=== PATIENT | male | born 1950 | race Caucasian/White ===

== ENCOUNTER 2017-06-09 17:21 | Emergency (ER) | payer MEDICARE, BC ==
[2017-06-09 17:41] VITALS: BP 141/99
--- NOTE | 2017-06-09 19:04 | ED ---
Throat Pain/Nasal Congestion - HPI Summary HPI Summary: 67 yo WM h/o DM c/o sore throat that progressed to left ear pain x 6 days associated with f/c - History of Current Complaint Chief Complaint: UCRespiratory Time Seen by Provider: 06/09/17 17:35 Hx Obtained From: Patient Onset/Duration: Lasting Days Severity: Moderate Associated Signs And Symptoms: Positive: Negative - Allergies/Home Medications Allergies/Adverse Reactions: Allergies Allergy/AdvReac Type Severity Reaction Status Date / Time No Known Allergies Allergy Verified 06/09/17 17:42 Home Medications: Home Medications Aspirin EC TAB* [Ecotrin EC Low Dose 81 MG*] 1 tab PO DAILY 06/09/17 [History Confirmed 06/09/17] Betamethasone Dipropionate 1 dose TOPICAL DAILY 06/09/17 [History Confirmed 05/24] Cholecalciferol TAB* [Vitamin D TAB*] 1 tab PO DAILY 06/09/17 [History Confirmed 06/09/17] Fluticasone NASAL SPRAY 50MCG* [Flonase NASAL SPRAY 50MCG*] 2 spray NASAL DAILY 06/09/17 [History Confirmed 06/09/17] Glimepiride 1 tab PO DAILY 06/09/17 [History Confirmed 06/09/17] Insulin Glargine,Hum.rec.anlog [Lantus Solostar 5x3 ML PENS] 0.56 unit SQ DAILY 06/09/17 [History Confirmed 06/09/17] Losartan Potassium 1 tab PO DAILY 06/09/17 [History Confirmed 06/09/17] Simvastatin [Zocor] 1 tab PO DAILY 06/09/17 [History Confirmed 06/09/17] metFORMIN* [Glucophage 1000 MG TAB *] 1 tab PO BID 06/09/17 [History Confirmed 06/09/17] PMH/Surg Hx/FS Hx/Imm Hx Previously Healthy: Yes Endocrine/Hematology History: Reports: Hx Diabetes - II Cardiovascular History: Reports: Hx Hypertension - Surgical History Surgery Procedure, Year, and Place: 2005 GI. Appy and spleen Infectious Disease History: No Infectious Disease History: Denies: Traveled Outside the [place] in Last 30 Days - Social History Alcohol Use: None Substance Use Type: Reports: None Smoking Status (MU): Never Smoked Tobacco Review of Systems Positive: Fever, Chills, Fatigue Eyes: Negative Positive: Sore Throat, Ear Ache Cardiovascular: Negative Respiratory: Negative Gastrointestinal: Negative Musculoskeletal: Negative Skin: Negative Neurological: Negative Psychological: Normal All Other Systems Reviewed And Are Negative: Yes Physical Exam Triage Information Reviewed: Yes Vital Signs On Initial Exam: Initial Vitals Temp Pulse Resp BP Pulse Ox 37.2 C 100 12 141/99 98 06/09/17 17:39 06/09/17 17:39 06/09/17 17:39 06/09/17 17:39 06/09/17 17:39 Vital Signs Reviewed: Yes Appearance: Positive: Ill-Appearing Skin: Positive: Warm Head/Face: Positive: Normal Head/Face Inspection Eyes: Positive: Normal ENT: Positive: TM red - left>right Neck: Positive: Tenderness @ - B/L post auricular LNs, L>R Respiratory/Lung Sounds: Positive: Clear to Auscultation Cardiovascular: Positive: Normal, S1, S2 Abdomen Description: Positive: Nontender Musculoskeletal: Positive: Normal Neurological: Positive: Normal Psychiatric: Positive: Normal Diagnostics - Vital Signs Vital Signs Temp Pulse Resp BP Pulse Ox 06/09/17 17:39 37.2 C 100 12 141/99 98 - Laboratory Lab Results: Lab Results 06/09/17 Range/Units 17:58 Group A Strep Rapid Negative (Negative) Lab Statement: Any lab studies that have been ordered have been reviewed, and results considered in the medical decision making process. EENT Course/Dx - Course Course Of Treatment: rapid strep neg - Diagnoses Provider Diagnoses: Otitis media of left ear Discharge - Sign-Out/Discharge Documenting (check all that apply): Discharge/Admit/Transfer - Discharge Plan Condition: Stable Disposition: HOME Prescriptions: Amoxicillin/Clavulanate TAB* [Augmentin TAB 875*] 875 mg PO BID 7 Days #14 tab Patient Education Materials: Ear Infection (ED) Referrals: No Primary Care Phys,NOPCP [Primary Care Provider] - - Billing Disposition and Condition Condition: STABLE Disposition: HOME
== END 2017-06-09 19:23 | disposition home or self-care (01) ==
LOC: UCEAST 17:21
DX: H66.92 Otitis media, unspecified, left ear (principal); E11.9 Type 2 diabetes mellitus without complications; Z79.4 Long term (current) use of insulin; Z79.84 Long term (current) use of oral hypoglycemic drugs; I10 Essential (primary) hypertension
CPT/HCPCS: 87651; 99202; G0463

== ENCOUNTER 2017-06-16 20:26 | Emergency (ER) | payer MEDICARE, BC ==
[2017-06-16 21:06] VITALS: BP 125/87
[2017-06-16] MEDS ORDERED: Nystatin SUSPENSION* 100000 UNITS/ML 5 ML UDC ONE ×2 (21:27→21:34)
--- NOTE | 2017-06-16 21:34 | ED ---
Throat Pain/Nasal Congestion - HPI Summary HPI Summary: 67 yo WM h/o DM was here 1 week ago for and was given Amox for OM, felt better but still feels "blocked in B/L ear , left>right", denies pain/f/c/or discharge - History of Current Complaint Chief Complaint: UCEar Time Seen by Provider: 06/16/17 20:39 Hx Obtained From: Patient Onset/Duration: Gradual Onset, Lasting Days Severity: Moderate Associated Signs And Symptoms: Positive: Negative - Epiglottits Risk Factors Epiglottis Risk Factors: Negative - Allergies/Home Medications Allergies/Adverse Reactions: Allergies Allergy/AdvReac Type Severity Reaction Status Date / Time No Known Allergies Allergy Verified 06/09/17 17:42 PMH/Surg Hx/FS Hx/Imm Hx Previously Healthy: Yes Endocrine/Hematology History: Reports: Hx Diabetes - II Cardiovascular History: Reports: Hx Hypertension - Surgical History Surgery Procedure, Year, and Place: 2005 GI. Appy and spleen Infectious Disease History: No Infectious Disease History: Denies: Traveled Outside the [place] in Last 30 Days - Social History Alcohol Use: None Substance Use Type: Reports: None Smoking Status (MU): Never Smoked Tobacco Review of Systems Constitutional: Negative Eyes: Negative ENT: Other Positive: Other - "ear blocked" Cardiovascular: Negative Respiratory: Negative Gastrointestinal: Negative Genitourinary: Negative Musculoskeletal: Negative Skin: Negative Neurological: Negative Psychological: Normal All Other Systems Reviewed And Are Negative: Yes Physical Exam Triage Information Reviewed: Yes Vital Signs On Initial Exam: Initial Vitals Temp Pulse Resp BP Pulse Ox 37.2 C 93 18 125/87 99 06/16/17 21:01 06/16/17 21:01 06/16/17 21:01 06/16/17 21:01 06/16/17 21:01 Vital Signs Reviewed: Yes Appearance: Positive: Well-Appearing Skin: Positive: Warm Eyes: Positive: Normal ENT: Positive: Other - B/L whitish fungal hyphae seen in B/L inner ear canal left>right, no effusion Neck: Positive: Supple Respiratory/Lung Sounds: Positive: Clear to Auscultation Cardiovascular: Positive: Normal Musculoskeletal: Positive: Normal Neurological: Positive: Normal Diagnostics - Vital Signs Vital Signs Temp Pulse Resp BP Pulse Ox 06/16/17 21:01 37.2 C 93 18 125/87 99 - Laboratory Lab Statement: Any lab studies that have been ordered have been reviewed, and results considered in the medical decision making process. EENT Course/Dx - Course Course Of Treatment: Otomycosis- Nystatin suspension to B/L ears [id number] - Diagnoses Provider Diagnoses: Otomycosis of left ear, Otomycosis Discharge - Sign-Out/Discharge Documenting (check all that apply): Discharge/Admit/Transfer - Discharge Plan Condition: Stable Disposition: HOME Prescriptions: Nystatin SUSPENSION* 100,000 unit BOTH EARS BID 15 Days #14 [facility] [place] Patient Education Materials: Otitis Externa (ED) Referrals: No Primary Care Phys,NOPCP [Primary Care Provider] - Additional Instructions: follow up with PCP in 1 week - Billing Disposition and Condition Condition: STABLE Disposition: HOME
== END 2017-06-16 21:48 | disposition home or self-care (01) ==
LOC: UCEAST 20:26
DX: B36.9 Superficial mycosis, unspecified (principal); H62.43 Otitis externa in other diseases classified elsewhere, bilateral
CPT/HCPCS: 99212; A9270-GY; G0463

== ENCOUNTER 2018-05-09 21:19 | Emergency (ER) | payer MEDICARE, BC ==
[2018-05-09] MEDS ORDERED: Morphine 4 MG/ML VIAL (1 ml) 4 MG/ML VIAL IV ONE (21:45)
[2018-05-09] MEDS ORDERED: NS 0.9% 1000 ML** 1,000 ML IV ONE (21:45)
[2018-05-09] MEDS ORDERED: Ondansetron INJ* 2 MG/ML VIAL IV ONE (21:46)
--- NOTE | 2018-05-09 21:46 | ED ---
Abdominal Pain/Male - HPI Summary HPI Summary: This patient is a 68 year old M presenting to ED with a chief complaint of LLQ abdominal pain since around 2100. The patient rates the pain 3/10 in severity. Symptoms aggravated by nothing. Symptoms alleviated by nothing. Patient reports vomiting after PO (1 hour ago). Last BM was last night. PMHx of intestinal blockages (1998, 2002, and 2004) and had SHx of appendectomy and splenectomy in 2005. Denies hx of diverticulitis. - History of Current Complaint Chief Complaint: EDAbdPain Stated Complaint: VOMITING, "THINK I HAVE A STOMACH BLOCKAGE" PER PT Time Seen by Provider: 05/09/18 21:37 Hx Obtained From: Patient Onset/Duration: Sudden Onset, Lasting Minutes - around 2100, Still Present Timing: Constant, Lasting Minutes Severity Initially: Mild Severity Currently: Mild - 3/10 Pain Intensity: 3 Pain Scale Used: 0-10 Numeric Location: Discrete At: LLQ Radiates: No Aggravating Factor(s): Nothing Alleviating Factor(s): Nothing Associated Signs And Symptoms: Positive: Vomiting - Allergies/Home Medications Allergies/Adverse Reactions: Allergies Allergy/AdvReac Type Severity Reaction Status Date / Time No Known Allergies Allergy Verified 05/09/18 21:57 PMH/Surg Hx/FS Hx/Imm Hx Endocrine/Hematology History: Reports: Hx Diabetes - II Cardiovascular History: Reports: Hx Hypertension - Surgical History Surgery Procedure, Year, and Place: 2005 GI. Appy and spleen Infectious Disease History: Yes Infectious Disease History: Denies: Traveled Outside the [place] in Last 30 Days - Family History Known Family History: Positive: Diabetes, Other Family History: HLD - Social History Alcohol Use: None Substance Use Type: Reports: None Smoking Status (MU): Never Smoked Tobacco Review of Systems Negative: Fever Positive: Abdominal Pain - LLQ, Vomiting, Other - last BM was last night All Other Systems Reviewed And Are Negative: Yes Physical Exam - Summary Physical Exam Summary: VITAL SIGNS: Reviewed. GENERAL: Patient is a well-developed and nourished MALE who is lying comfortable in the stretcher. Patient is not in any acute respiratory distress. HEAD AND FACE: No signs of trauma. No ecchymosis, hematomas or skull depressions. No sinus tenderness. EYES: PERRLA, EOMI x 2, No injected conjunctiva, no nystagmus. EARS: Hearing grossly intact. Ear canals and tympanic membranes are within normal limits. MOUTH: Oropharynx within normal limits. NECK: Supple, trachea is midline, no adenopathy, no JVD, no carotid bruit, no c- spine tenderness, neck with full ROM. CHEST: Symmetric, no tenderness at palpation LUNGS: Clear to auscultation bilaterally. No wheezing or crackles. CVS: Regular rate and rhythm, S1 and S2 present, no murmurs or gallops appreciated. ABDOMEN: Soft, LLQ tenderness. Mild to moderate distension. No rebound no guarding, and no masses palpated. Bowel sounds are normal. EXTREMITIES: FROM in all major joints, no edema, no cyanosis or clubbing. NEURO: Alert and oriented x 3. No acute neurological deficits. Speech is normal and follows commands. SKIN: Dry and warm Triage Information Reviewed: Yes Vital Signs On Initial Exam: Initial Vitals Temp Pulse Resp BP Pulse Ox 97.3 F 111 20 140/96 96 05/09/18 21:21 05/09/18 21:21 05/09/18 21:21 05/09/18 21:21 05/09/18 21:21 Vital Signs Reviewed: Yes Diagnostics - Vital Signs Vital Signs Temp Pulse Resp BP Pulse Ox 05/09/18 21:21 97.3 F 111 20 140/96 96 - Laboratory Result Diagrams: 05/09/18 22:15 05/09/18 22:15 Lab Statement: Any lab studies that have been ordered have been reviewed, and results considered in the medical decision making process. - CT CT abd/pel CT Interpretation Completed By: Radiologist Summary of CT Findings: 1. No CT findings to correlate with patient's symptomatology. 2. Right nephrolithiasis. 3. Right inguinal hernia. No strangulation. Dr. Damon has reviewed this radiology report. Re-Evaluation - Re-Evaluation First Eval Re-Evaluation Time: 00:23 Change: Improved Comment: The patient feels better. Discussed results and plan for discharge. Patient understands and agrees with this plan. Abdominal Pain Male Course/Dx - Course Assessment/Plan: This patient is a 68 year old M presenting to ED with a chief complaint of LLQ abdominal pain since around 2100. In the ED course, the patient was given fluids, Morphine, and Zofran. CT abd/pel reveals 1. No CT findings to correlate with patient's symptomatology. 2. Right nephrolithiasis. 3. Right inguinal hernia. No strangulation. The patient feels better in the ED. This patient will be discharged with dx of abdominal pain. Patient understands and agrees with this plan. - Diagnoses Differential Diagnosis/HQI/PQRI: Other - abdominal pain Provider Diagnoses: Abdominal pain Discharge - Sign-Out/Discharge Documenting (check all that apply): Patient Departure - discharge Patient Received Moderate/Deep Sedation with Procedure: No - Discharge Plan Condition: Stable Disposition: HOME Patient Education Materials: Abdominal Pain (ED) Referrals: [facility] [Outside] - 3 Days Additional Instructions: PLEASE RETURN TO THE ED TO IMMEDIATELY FOR WORSENING OR CONCERNING SYMPTOMS. - Attestation Statements Document Initiated by Scribe: Yes Documenting Scribe: Star Ansari Provider For Whom Scribe is Documenting (Include Credential): Lilliam Damon MD Scribe Attestation: Star Howe, scribed for Lilliam Damon MD on 05/10/18 at 0023. Status of Scribe Document: Ready
[2018-05-09] MEDS ORDERED: Ondansetron INJ* 2 MG/ML VIAL ONE (21:51)
[2018-05-09 22:36] LABS: Hematocrit 47 % (36-46); Hemoglobin 15.3 g/dL (14.0-18.0); Mean Corpuscular HGB Conc 33 g/dL (31-36); Mean Corpuscular Hemoglobin 31 pg (27-31); Mean Corpuscular Volume 93 fL (80-94); Red Blood Count 4.99 10^6 /uL (4.18-5.48); Red Cell Distribution Width 13 % (10.5-15); White Blood Count 13.8 10^3/uL (3.5-10.8)
[2018-05-09 22:37] LABS: INR 0.91 (0.77-1.02)
[2018-05-09 22:46] LABS: Albumin 4.2 g/dL (3.2-5.2); Albumin/Globulin Ratio 1.4 (1-3); BUN/Creatinine Ratio 26.8 (8-20); C Reactive Protein 7.17 mg/L (<8.01); Calcium 9.3 mg/dL (8.6-10.3); EGFR African American 134.3 (>60); Potassium 4.1 mmol/L (3.5-5.0); Total Bilirubin 0.5 mg/dL (0.2-1.0); Total Protein 7.2 g/dL (6.4-8.9)
[2018-05-09] MEDS ORDERED: Iodixanol* (CONTRAST) 320 MG/ML 100 ML SDV IV ONE (22:50)
[2018-05-09 22:53] LABS: ABS Basophils 0 10^3/ul (0-0.2); ABS Eosinophils 0.1 10^3/ul (0-0.6); ABS Lymphocytes 0.7 10^3/ul (1.0-4.8); ABS Monocytes 0.7 10^3/ul (0-0.8); ABS Neutrophils 12.3 10^3/ul (1.5-7.7); ABS Nucleated RBC 0 10^3/ul; Eosinophil % 0.7 %; Lymphocyte % 5.1 %; Mean Platelet Volume 9.9 fL (7.4-10.4); Nucleated Red Blood Cells % 0.1; Platelet Count 248 10^3/uL (150-450)
[2018-05-09 23:38] LABS: Urine Appearance Clear; Urine Bacteria Absent (Absent); Urine Bilirubin Negative (Negative); Urine Blood 1+ (Negative); Urine Color Straw; Urine Glucose 1+(50 mg/dL) (Negative); Urine Ketones Negative (Negative); Urine Nitrite Negative (Negative); Urine Protein Negative (Negative); Urine Red Blood Cell 1+(3-5/hpf) (Absent); Urine Specific Gravity 1.036 (1.010-1.030); Urine Urobilinogen Negative (Negative); Urine White Blood Cell Trace(0-5/hpf) (Absent)
[2018-05-10 00:56] VITALS: BP 114/84
== END 2018-05-10 00:58 | disposition home or self-care (01) ==
LOC: ED 21:19
DX: R10.32 Left lower quadrant pain (principal); R11.10 Vomiting, unspecified; N20.0 Calculus of kidney; K40.90 Unilateral inguinal hernia, without obstruction or gangrene, not specified as recurrent; E11.9 Type 2 diabetes mellitus without complications; I10 Essential (primary) hypertension; Z90.89 Acquired absence of other organs; Z90.81 Acquired absence of spleen
CPT/HCPCS: 36415; 74177; 80053; 81003; 81015; 82150; 83690; 85025; 85610; 85730; 86140; 87086; 96361; 96374; 96375; 99283; J2270; J2405; Q9967

== ENCOUNTER 2018-06-29 17:40 | Emergency (ER) | payer MEDICARE, BC ==
[2018-06-29] MEDS ORDERED: NS 0.9% 1000 ML** 3,000 ML IV ONE (19:54)
[2018-06-29] MEDS ORDERED: Ondansetron INJ* 2 MG/ML VIAL IV ONE (19:54)
[2018-06-29] MEDS ORDERED: Morphine 4 MG/ML VIAL (1 ml) 4 MG/ML VIAL IV ONE (19:54)
--- NOTE | 2018-06-29 20:06 | ED ---
Abdominal Pain/Male - HPI Summary HPI Summary: Pt is a 68 y/o M presenting to the ED with a chief complaint of abd pain rated at a 9/10 first onset about 1500, 3 hours after he ate lunch. He also reports associated N/V since 1500. He notes hx of three blockages in his intestines as well as adhesions that were repaired in 2005. He had a flare up of abd pain about 2 months ago, but a CT scan did not show a blockage, and he believes this is what is causing his pain. He denies any fevers. - History of Current Complaint Chief Complaint: EDAbdPain Stated Complaint: ABD PAIN, VOMITING PER PT Time Seen by Provider: 06/29/18 19:44 Hx Obtained From: Patient Onset/Duration: Sudden Onset, Lasting Hours, Still Present Timing: Constant, Lasting Hours Severity Initially: Moderate Severity Currently: Severe Pain Intensity: 9 Pain Scale Used: 0-10 Numeric Location: Diffuse Radiates: No Aggravating Factor(s): Nothing Alleviating Factor(s): Nothing Associated Signs And Symptoms: Positive: Nausea, Vomiting. Negative: Fever - Allergies/Home Medications Allergies/Adverse Reactions: Allergies Allergy/AdvReac Type Severity Reaction Status Date / Time No Known Allergies Allergy Verified 06/29/18 19:59 PMH/Surg Hx/FS Hx/Imm Hx Previously Healthy: No Endocrine/Hematology History: Reports: Hx Diabetes - II Cardiovascular History: Reports: Hx Hypertension GI History: Reports: Other GI Disorders - prior blockages with adhesions in his intestines - Surgical History Surgery Procedure, Year, and Place: 2005 GI. Appy and spleen Infectious Disease History: No Infectious Disease History: Denies: Traveled Outside the [place] in Last 30 Days - Family History Known Family History: Positive: Diabetes, Other Family History: HLD - Social History Alcohol Use: None Hx Substance Use: No Substance Use Type: Reports: None Hx Tobacco Use: No Smoking Status (MU): Never Smoked Tobacco Review of Systems Negative: Fever Positive: Abdominal Pain, Vomiting, Nausea All Other Systems Reviewed And Are Negative: Yes Physical Exam - Summary Physical Exam Summary: Appearance: Well-appearing, Well-nourished, lying in bed comfortably Skin: Warm, dry, no obvious rash Eyes: sclera anicteric, no conjunctival pallor ENT: mucous membranes moist, pharynx appears normal Neck: Supple, nontender Respiratory: Clear to auscultation, no signs of respiratory distress Cardiovascular: Normal S1, S2. No murmurs. Normal distal pulses in tibial and radial bilaterally. Abdomen: Soft, generalized abdominal tenderness, increased bowel sounds Musculoskeletal: Normal, Strength/ROM Intact Neurological: A&Ox3, awake and alert, mentation is normal, speech is fluent and appropriate Psychiatric: affect is normal, does not appear anxious or depressed Triage Information Reviewed: Yes Vital Signs On Initial Exam: Initial Vitals Temp Pulse Resp BP Pulse Ox 97.0 F 74 18 159/86 96 06/29/18 17:42 06/29/18 17:42 06/29/18 17:42 06/29/18 17:42 06/29/18 17:42 Vital Signs Reviewed: Yes Diagnostics - Vital Signs Vital Signs Temp Pulse Resp BP Pulse Ox 06/29/18 17:42 97.0 F 74 18 159/86 96 - Laboratory Result Diagrams: 06/29/18 20:14 06/29/18 20:14 Lab Statement: Any lab studies that have been ordered have been reviewed, and results considered in the medical decision making process. - CT CT abd/pelv CT Interpretation Completed By: Radiologist Summary of CT Findings: 1. The previously seen right renal calculus is now positioned in the proximal right ureter measuring 9 mm in maximum dimension and contributing to mild to moderate right obstructive uropathy. 2. Stable colonic diverticulosis without evidence for acute diverticulitis. ED physician has reviewed this report. Abdominal Pain Male Course/Dx - Course Course Of Treatment: Pt is a 68 y/o M presenting to the ED with a chief complaint of abd pain rated at a 9/10 first onset about 1500, 3 hours after he ate lunch. He also reports associated N/V since 1500. He denies any fevers, and notes a hx of blockages in his intestines as well as adhesions that have been surgically repaired. On exam, the pt has diffuse abd tenderness with increased bowel sounds. In the ED course, the pt was given 4mg Morphine for his pain as well as Zofran for his nausea/vomiting. CT abd/pelv shows: 1. The previously seen right renal calculus is now positioned in the proximal right ureter measuring 9 mm in maximum dimension and contributing to mild to moderate right obstructive uropathy. 2. Stable colonic diverticulosis without evidence for acute diverticulitis. He will be given a Percocet to manage the pain in the ED , and will be discharged with a dx of kidney stones and instructed to follow up with Dr. Solo in the next coming days. He is stable and agreeable with this plan. - Diagnoses Provider Diagnoses: Kidney stone Discharge - Sign-Out/Discharge Documenting (check all that apply): Patient Departure Patient Received Moderate/Deep Sedation with Procedure: No - Discharge Plan Condition: Stable Disposition: HOME Prescriptions: Ondansetron ODT TAB* [Zofran 4 MG Odt TAB*] 8 mg PO Q6H PRN #20 tab.odt PRN Reason: Nausea oxyCODONE/Acetamin 5/325 MG* [Percocet 5/325 TAB*] 2 tab PO Q4H PRN #24 tab MDD 8 PRN Reason: Pain Patient Education Materials: Kidney Stones (ED) Referrals: Brown Nguyễn MD [Primary Care Provider] - Additional Instructions: The pain you are experiencing is coming from a kidney stone lodged in the right ureter. Hopefully the stone will pass, but it is large enough that it may not. Over the weekend take pain medication and try to keep your symptoms under control. If you have difficulty doing that you can come back here, and we will take care of their her symptoms, but if you need surgical intervention over the weekend we would have to transfer you to a tertiary care center. - Billing Disposition and Condition Condition: STABLE Disposition: Home - Attestation Statements Document Initiated by Perlita: Yes Documenting Scribe: Sharmila Mane Provider For Whom Perlita is Documenting (Include Credential): Johnny Becker MD. Scribe Attestation: Sharmila Howe, tomed for Johnny Becker MD. on 07/03/18 at 2028. Scribe Documentation Reviewed: Yes Provider Attestation: The documentation as recorded by the Sharmila rouse accurately reflects the service I personally performed and the decisions made by me, Johnny Becker MD. Status of Scribe Document: Viewed
[2018-06-29 20:24] LABS: ABS Basophils 0.1 10^3/ul (0-0.2); ABS Monocytes 0.5 10^3/ul (0-0.8); ABS Neutrophils 11.5 10^3/ul (1.5-7.7); Hematocrit 46 % (42-52); Hemoglobin 15.3 g/dL (14.0-18.0); Lymphocyte % 7.9 %; Mean Corpuscular HGB Conc 33 g/dL (31-36); Mean Corpuscular Hemoglobin 31 pg (27-31); Mean Corpuscular Volume 93 fL (80-94); Platelet Count 278 10^3/uL (150-450); Red Blood Count 4.98 10^6 /uL (4.18-5.48); Red Cell Distribution Width 13 % (10.5-15); White Blood Count 13.1 10^3/uL (3.5-10.8)
[2018-06-29 20:42] LABS: Albumin 4.6 g/dL (3.2-5.2); Albumin/Globulin Ratio 1.4 (1-3); BUN/Creatinine Ratio 21.9 (8-20); C Reactive Protein 6.64 mg/L (<8.01); Calcium 10.1 mg/dL (8.6-10.3); EGFR African American 94.8 (>60); EGFR Non-African American 78.4 (>60); Globulin 3.2 g/dL (2-4); Potassium 4.3 mmol/L (3.5-5.0); Total Bilirubin 0.5 mg/dL (0.2-1.0); Total Protein 7.8 g/dL (6.4-8.9)
[2018-06-29 20:45] LABS: Urine Appearance Cloudy; Urine Bilirubin Negative (Negative); Urine Blood Negative (Negative); Urine Color Yellow; Urine Glucose 3+(>=500 mg/dL) (Negative); Urine Ketones Trace (Negative); Urine Nitrite Negative (Negative); Urine Protein Negative (Negative); Urine Specific Gravity 1.021 (1.010-1.030); Urine Urobilinogen Negative (Negative)
[2018-06-29] MEDS ORDERED: Iodixanol* (CONTRAST) 320 MG/ML 100 ML SDV IV ONE (20:59)
[2018-06-29] MEDS ORDERED: oxyCODONE/Acetamin 5/325 MG* TAB PO ONE (23:16)
[2018-06-30 00:42] VITALS: BP 119/73
== END 2018-06-30 00:40 | disposition home or self-care (01) ==
LOC: ED 17:40
DX: N20.0 Calculus of kidney (principal); K57.90 Diverticulosis of intestine, part unspecified, without perforation or abscess without bleeding; I10 Essential (primary) hypertension; E11.9 Type 2 diabetes mellitus without complications
CPT/HCPCS: 36415; 74177; 80053; 81003; 83605; 83690; 85025; 86140; 96361; 96374; 96375; 99283; A9270-GY; J2270; J2405; Q9967

== ENCOUNTER 2018-07-16 08:56 | Day surgery (SDC) | payer MEDICARE, BC ==
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
[~2018-07-16 08:56] MED LIST: Buffered Lidocaine 1% SYRIN* 1 ML/SYRINGE INTRADERM ONE; Famotidine IV* 10 MG/ML 2 ML (20 mg) IV ONE; Lactated Ringers 1000 ML Bag* 1,000 ML IV SCH
[2018-07-16] MEDS ORDERED: cefTRIAXone(*) 2 GM ADDV.VIAL IVPB ONE (10:01)
[2018-07-16] MEDS ORDERED: Buffered Lidocaine 1% SYRIN* 1 ML/SYRINGE INTRADERM ONE (10:02)
[2018-07-16] MEDS ORDERED: Famotidine IV* 10 MG/ML 2 ML (20 mg) ONE (10:02)
[2018-07-16] MEDS ORDERED: Propofol* 10 MG/ML 20 ML BTL ONE (10:24)
[2018-07-16] MEDS ORDERED: Ondansetron INJ* 2 MG/ML VIAL ONE (10:24)
[2018-07-16] MEDS ORDERED: Lidocaine 2% PF * 5 ML VIAL ONE (10:24)
[2018-07-16] MEDS ORDERED: Ketorolac INJ* 30 MG/ML 1 ML VIAL ONE (10:24)
[2018-07-16] MEDS ORDERED: Dexamethasone IV* 4 MG/ML 1 ML (4 MG) ONE (10:24)
[2018-07-16] MEDS ORDERED: fentaNYL* 50 MCG/ML 2 ML VIAL (100 MCG VIAL) ONE (10:25)
[2018-07-16] MEDS ORDERED: Midazolam* 1 MG/ML 5 ML VIAL (5 MG) ONE (10:25)
[2018-07-16] MEDS ORDERED: Iohexol 180 (CONTRAST) 10 ML SDV IV ONE (11:42)
[2018-07-16] MEDS ORDERED: EPHEDrine (Pressors)* 50 MG/ML VIAL ONE (12:17)
[2018-07-16] MEDS ORDERED: Furosemide IV* 10 MG/ML 2 ML VIAL (20 MG) ONE (12:28)
[2018-07-16] MEDS ORDERED: Tamsulosin CAP* 0.4 MG ONE (13:20)
[2018-07-16 14:16] VITALS: BP 133/77
--- NOTE | 2018-07-16 14:30 | OP ---
CC: Dr. Nguyễn * DATE OF OPERATION: 07/16/18 - [facility] DATE OF : 54 SURGEON: Jayden Solo MD. ANESTHESIOLOGIST: Dr. Sepulveda. ANESTHESIA: General. PREOPERATIVE DIAGNOSIS: Right renal calculus. POSTOPERATIVE DIAGNOSIS: Right renal calculus. OPERATIVE PROCEDURES: 1. Cystoscopy, right retrograde pyelogram, right stent insertion. 2. Shockwave lithotripsy of right renal calculus. COMPLICATIONS: None. STENT USED: 8-Lao stent, right ureter. POSTOPERATIVE CONDITION: Stable. INDICATIONS: Remington Arzola is a 68-year-old gentleman who was evaluated and noted to have an intermittently obstructing 1 cm calculus in the right kidney. DESCRIPTION OF PROCEDURE: After induction of general anesthesia, the patient was placed in dorsal lithotomy position. Sequential compression devices were in place and functioning. Initial cystoscopy revealed a normal-appearing urethra , a mildly enlarged prostate, and a normal-appearing bladder. Right retrograde pyelogram revealed mild fullness of the right collecting system. An 8-Lao stent was introduced and positioned under fluoroscopy with good proximal and distal positioning obtained. The patient was then placed on the lithotripsy table in supine position. The calculus which was in the lower pole of the right kidney was visualized using fluoroscopy and shockwave lithotripsy was commenced at a rate of 60 shocks per minute. After the initial 300 shocks, there was a pause in lithotripsy for several minutes in an effort to minimize any potential trauma to the kidney. Lithotripsy was then resumed and a total of 2400 shocks were administered with good fragmentation observed. The patient tolerated the procedure satisfactorily and was transferred back to the recovery area in stable condition. [id number]/[facility]: [id number] [facility]
== END 2018-07-16 15:35 | disposition home or self-care (01) ==
LOC: OR 08:56
PROVIDERS: ATTEND Urology
DX: N20.0 Calculus of kidney (principal); E11.9 Type 2 diabetes mellitus without complications; I10 Essential (primary) hypertension; E78.00 Pure hypercholesterolemia, unspecified; Z79.82 Long term (current) use of aspirin
CPT/HCPCS: 74018; C1876; J0696; J1100; J1885; J1940; J2250; J2405; J2704; J3010